=== PATIENT | male | born 1980 | race Caucasian/White ===

== ENCOUNTER 2020-05-09 23:09 | Emergency (ER) | payer OTHER ==
[~2020-05-09 23:09] MED LIST: ATIVAN0.5 MG PO; LUNESTA2 MG PO
[2020-05-10 01:34] LABS: HEMOGLOBIN 17.5 gm/dl (14.0-17.5); RED BLOOD COUNT 3.7 M/UL (4.20-5.50); WHITE BLOOD COUNT 7.3 K/UL (4.5-11.0)
[2020-05-10 01:51] LABS: BUN/CREATININE RATIO 6 (0-10)
== END 2020-05-10 07:00 | disposition home or self-care (01) ==
LOC: ER1 23:09
PROVIDERS: Physician Assistant
DX: F20.9 Schizophrenia, unspecified (principal); F17.210 Nicotine dependence, cigarettes, uncomplicated; Z91.14 Patient's other noncompliance with medication regimen; Z20.828 Contact with and (suspected) exposure to other viral communicable diseases
CPT/HCPCS: 80053; 80307; 81001; 82550; 82553; 83874; 84484; 85025; 93005; 99285; J7030; U0002

== ENCOUNTER 2020-05-24 02:02 | Emergency (ER) | payer OTHER ==
[2020-05-24 02:23] LABS: HEMOGLOBIN 17.3 gm/dl (14.0-17.5); RED BLOOD COUNT 5.95 M/UL (4.20-5.50); WHITE BLOOD COUNT 6.3 K/UL (4.5-11.0)
[2020-05-24 02:41] LABS: BUN/CREATININE RATIO 8 (0-10)
[2020-05-24] MEDS ORDERED: K-DUR TAB 20 M20 MEQ PO (03:02)
== END 2020-05-24 03:07 | disposition home or self-care (01) ==
LOC: ER1 02:02
PROVIDERS: Physician Assistant
DX: E87.6 Hypokalemia (principal); L90.5 Scar conditions and fibrosis of skin; F17.210 Nicotine dependence, cigarettes, uncomplicated
CPT/HCPCS: 71045; 80053; 82550; 82553; 83874; 84484; 85025; 93005; 99285; G0480

== ENCOUNTER 2020-06-01 02:08 | Emergency (ER) | payer OTHER ==
[~2020-06-01 02:08] MED LIST changes: +K-DUR TAB 20 M20 MEQ PO
[2020-06-01 10:40] LABS: HEMOGLOBIN 16.4 gm/dl (14.0-17.5); RED BLOOD COUNT 5.67 M/UL (4.20-5.50)
[2020-06-01 12:27] LABS: BUN/CREATININE RATIO 8 (0-10)
== END 2020-06-01 14:56 | disposition home or self-care (01) ==
LOC: ER1 02:08
PROVIDERS: Family Medicine
DX: F20.9 Schizophrenia, unspecified (principal); R07.89 Other chest pain; F17.200 Nicotine dependence, unspecified, uncomplicated; Z91.14 Patient's other noncompliance with medication regimen; Z53.20 Procedure and treatment not carried out because of patient's decision for unspecified reasons
CPT/HCPCS: 71045; 80053; 82550; 82553; 83874; 84484; 85025; 93005; 99285

== ENCOUNTER 2020-06-07 01:32 | Emergency (ER) | payer OTHER | END 2020-06-07 05:57 | disposition left against medical advice (07) | LOC: ER1 01:32 | DX: R07.9 Chest pain, unspecified (principal); R11.0 Nausea; Z53.21 Procedure and treatment not carried out due to patient leaving prior to being seen by health care provider | CPT/HCPCS: 71045; 93005 ==

== ENCOUNTER 2020-06-08 21:07 | Emergency (ER) | payer OTHER ==
[2020-06-08 22:15] LABS: HEMOGLOBIN 17.9 gm/dl (14.0-17.5); WHITE BLOOD COUNT 7.3 K/UL (4.5-11.0)
[2020-06-08 22:32] LABS: BUN/CREATININE RATIO 9 (0-10)
== END 2020-06-09 01:45 | disposition home or self-care (01) ==
LOC: ER1 21:07
PROVIDERS: Physician Assistant; Physician Assistant Medical
DX: R07.9 Chest pain, unspecified (principal); F19.10 Other psychoactive substance abuse, uncomplicated; F20.9 Schizophrenia, unspecified
CPT/HCPCS: 71045; 80053; 80307; 81001; 82550; 82553; 83874; 84484; 85025; 93005; 99285

== ENCOUNTER 2020-06-10 14:12 | Emergency (ER) | payer OTHER ==
[2020-06-10 15:25] LABS: HEMOGLOBIN 16.5 gm/dl (14.0-17.5); RED BLOOD COUNT 5.61 M/UL (4.20-5.50); WHITE BLOOD COUNT 6.3 K/UL (4.5-11.0)
[2020-06-10 15:53] LABS: BUN/CREATININE RATIO 10 (0-10)
== END 2020-06-10 17:00 | disposition home or self-care (01) ==
LOC: ER1 14:12
PROVIDERS: Family Medicine
DX: R07.89 Other chest pain (principal); G89.29 Other chronic pain; F15.10 Other stimulant abuse, uncomplicated; F17.200 Nicotine dependence, unspecified, uncomplicated; Z86.59 Personal history of other mental and behavioral disorders
CPT/HCPCS: 80048; 82550; 82553; 83874; 84484; 85025; 93005; 99285

== ENCOUNTER 2020-06-13 22:19 | Emergency (ER) | payer OTHER ==
[2020-06-14 01:00] LABS: HEMOGLOBIN 16.8 gm/dl (14.0-17.5); RED BLOOD COUNT 5.61 M/UL (4.20-5.50); WHITE BLOOD COUNT 8.3 K/UL (4.5-11.0)
[2020-06-14 01:24] LABS: BUN/CREATININE RATIO 11 (0-10)
== END 2020-06-14 01:38 | disposition home or self-care (01) ==
LOC: ER1 22:19
PROVIDERS: Physician Assistant
DX: R07.9 Chest pain, unspecified (principal); R00.0 Tachycardia, unspecified; F17.210 Nicotine dependence, cigarettes, uncomplicated; Z86.19 Personal history of other infectious and parasitic diseases
CPT/HCPCS: 36415; 71045; 80053; 82550; 82553; 83874; 84484; 85025; 93005; 99285

== ENCOUNTER 2020-07-21 19:40 | Emergency (ER) | payer OTHER | END 2020-07-22 01:35 | disposition home or self-care (01) | LOC: ER1 19:40 | DX: R07.9 Chest pain, unspecified (principal); F17.210 Nicotine dependence, cigarettes, uncomplicated | CPT/HCPCS: 71045; 93005; 99285 ==

== ENCOUNTER 2020-12-17 18:10 | Emergency (ER) | payer OTHER | END 2020-12-17 19:21 | disposition left against medical advice (07) | LOC: ER1 18:10 | DX: Z53.21 Procedure and treatment not carried out due to patient leaving prior to being seen by health care provider (principal) ==